=== PATIENT | female | born 1970 | race Caucasian/White ===

== ENCOUNTER 2018-03-02 11:04 | Emergency (ER) | payer SELFPAY ==
[~2018-03-02] VITALS: Ht 162.6 cm; Wt 47.0 kg
[~2018-03-02 11:04] MED LIST: DENIES CURRENT MEDS; FLEXERIL OR; ULTRAM50 MG OR
[2018-03-02 11:34] LABS: IMMATURE GRANULOCYTES 0.2 % (0.0-5.0); MEAN CELL VOLUME 92.8 fL CALC (80.0-100.0); MEAN CORPUSCULAR HGB 30.3 pG CALC (26.0-32.0); MEAN CORPUSCULAR HGB CONC 32.7 g/L CALC (32.0-36.0); NEUT# 2.11 thou/uL (2.00-7.15); RED BLOOD COUNT 5.57 mill/uL (4.20-5.60); RED CELL DISTRI WIDTH 12.8 % (11.5-15.5)
[2018-03-02 11:38] LABS: HEMATOCRIT 51.7 % (37.0-47.0); HEMOGLOBIN 16.9 g/dl (12.0-16.0)
[2018-03-02 11:58] LABS: ALBUMIN 3.6 g/dL (3.2-5.0); ALKALINE PHOSPHATASE 70 u/l (38-126); ANION GAP 13 (6-22 (CALC)); BILIRUBIN, TOTAL 0.3 mg/dL (0.0-1.4); BUN 17 mg/dL (7-17); BUN/CREATININE RATIO 18 (12-20 (CALC)); CARBON DIOXIDE 27 mmol/l (22-30); CHLORIDE 105 mmol/l (95-108); GFR 59 ML/MIN (>=60 (CALC)); GFR FOR AFR.AMER. > 60 ML/MIN (>=60 (CALC)); SGOT/AST 36 u/l (14-36); SODIUM 140 mmol/l (137-146); TOTAL PROTEIN 6.5 g/dL (6.3-8.2)
[2018-03-02 12:00] LABS: POTASSIUM 4.7 mmol/l (3.5-5.1)
[2018-03-02 13:02] LABS: INFLUENZA A POSITIVE (NONE DETECT); INFLUENZA B NONE DETECTED (NONE DETECT)
[2018-03-02] MEDS ORDERED: ZITHROMAX250 MG PO (13:21)
[2018-03-02] MEDS ORDERED: PROVENTIL HFA IN (13:21)
[2018-03-02] MEDS ORDERED: TAM75CAP PO (13:34)
[2018-03-02 13:40] VITALS: BP 119/58
== END 2018-03-02 13:40 | disposition home or self-care (01) | DRG 153 ==
LOC: ED 11:04
PROVIDERS: Emergency Medicine
DX: J11.1 Influenza due to unidentified influenza virus with other respiratory manifestations (principal); F17.200 Nicotine dependence, unspecified, uncomplicated

== ENCOUNTER 2018-11-28 10:44 | Observation (INO) | payer SELFPAY ==
[~2018-11-28] VITALS: Ht 162.6 cm; Wt 43.2 kg
[~2018-11-28 10:44] MED LIST changes: +PROVENTIL HFA IN; +TAM75CAP PO; +ZITHROMAX250 MG PO
--- NOTE | 2018-11-28 10:45 | NUR ---
PATIENT TO ED VIA EMS, UNCOOPERATIVE. 1 MG OF VERSED GIVEN BY EMS.
--- NOTE | 2018-11-28 10:52 | NUR ---
0.4 MG OF NARCAN IV GIVEN PER VERBAL ORDER.
--- NOTE | 2018-11-28 11:00 | NUR ---
[facility] PROVIDED FOR INCONTINENCE OF STOOL.
[2018-11-28 11:21] LABS: URINE BILIRUBIN - DIPSTICK NEGATIVE (NEGATIVE); URINE BLOOD DIPSTICK TRACE-INTACT (NEGATIVE); URINE COLOR YELLOW; URINE GLUCOSE - DIPSTICK NEGATIVE (NEGATIVE); URINE KETONE NEGATIVE (NEGATIVE); URINE LEUK ESTERASE NEGATIVE (NEGATIVE); URINE NITRITE - DIPSTICK POSITIVE (Negative); URINE PROTEIN - DIPSTICK TRACE mg/dL (NEG-TRACE); URINE SPECIFIC GRAVITY >=1.030; URINE UROBILINOGEN - DIPSTICK 0.2 E.U./dL (0.2)
[2018-11-28 11:22] LABS: URINE BACTERIA RARE hpf; URINE RBC 0-2 RBC/hpf (0-5); URINE WBC 0-2 WBC/hpf (0-5)
--- NOTE | 2018-11-28 11:23 | NUR ---
WAIVED HCG, FOR RADIOLOGY TO PERFORM ORDERED EXAMS
[2018-11-28 11:32] LABS: BARBITURATES NEGATIVE (NEGATIVE); COCAINE NEGATIVE (NEGATIVE); METHADONE NEGATIVE (NEGATIVE); TETRAHYDROCANNABIONOL NEGATIVE (NEGATIVE); TRICYLIC ANTIDEPRESSANTS NEGATIVE (NEGATIVE)
[2018-11-28 11:33] LABS: OXCYCODONE NEGATIVE (NEGATIVE)
[2018-11-28 11:36] LABS: IMMATURE GRANULOCYTES 0.5 % (0.0-5.0); MEAN CELL VOLUME 91.4 fL CALC (80.0-100.0); MEAN CORPUSCULAR HGB 29.9 pG CALC (26.0-32.0); MEAN CORPUSCULAR HGB CONC 32.7 g/L CALC (32.0-36.0); NEUT# 5.63 thou/uL (2.00-7.15); RED BLOOD COUNT 4.99 mill/uL (4.20-5.60); RED CELL DISTRI WIDTH 12.7 % (11.5-15.5)
[2018-11-28 11:40] LABS: HEMATOCRIT 45.6 % (37.0-47.0); HEMOGLOBIN 14.9 g/dl (12.0-16.0)
[2018-11-28 11:41] LABS: LIPASE 118 u/l (23-300)
[2018-11-28 11:42] LABS: ETHYL ALCOHOL 0 mg/dl (0-30)
[2018-11-28 11:44] LABS: ALBUMIN 3.8 g/dL (3.2-5.0); ALKALINE PHOSPHATASE 84 u/l (38-126); ANION GAP 12 (6-22 (CALC)); BILIRUBIN, TOTAL 0.5 mg/dL (0.0-1.4); BUN 13 mg/dL (7-17); BUN/CREATININE RATIO 16 (12-20 (CALC)); CARBON DIOXIDE 21 mmol/l (22-30); CHLORIDE 109 mmol/l (95-108); CREATININE 0.8 mg/dL (0.5-1.0); GFR > 60 ML/MIN (>=60 (CALC)); GFR FOR AFR.AMER. > 60 ML/MIN (>=60 (CALC)); SGOT/AST 39 u/l (14-36); SODIUM 138 mmol/l (137-146); TOTAL PROTEIN 6.7 g/dL (6.3-8.2)
--- NOTE | 2018-11-28 11:58 | NUR ---
IN TO REASSESS. Pt COMPLETLY ALERT. BOYFRIEND AT BEDSIDE
--- NOTE | 2018-11-28 12:14 | NUR ---
SON IN TO VISIT
--- NOTE | 2018-11-28 13:05 | NUR ---
MOM IN ROOM TO VISIT
--- NOTE | 2018-11-28 13:28 | NUR ---
ATTEMPT TO CALL REPORT TO MS. PRIMARY NURSE WILL CALL BACK.
--- NOTE | 2018-11-28 13:44 | NUR ---
DCSO Rowley AT BEDSIDE.
--- NOTE | 2018-11-28 14:35 | NUR ---
REPORT TO ROSE ALEXANDER
--- NOTE | 2018-11-28 14:42 | NUR ---
TO MS VIA W/C /c FRIEND TO FOLLOW. REPORT TO ROSE ALEXANDER
[2018-11-28 15:05] VITALS: BP 112/61
--- NOTE | 2018-11-28 17:00 | NUR ---
PT AWAKE RESTING IN BED. ALERT AND ORIENTED X4. RESP EVEN AND UNLABORED. PT OFFERS NO COMPLAINTS. VISITOR AT BEDSIDE. CALL KOO WITHIN REACH.
[2018-11-28 20:05] VITALS: BP 103/58
--- NOTE | 2018-11-28 20:55 | NUR ---
ASSESSMENT COMPLETED; NO DISTRESS NOTED. DENIES NEEDS/PAIN. NEURO CHECK WNL. REPORTS SLIGHT CRAMPS TO BLE AND GATRORADE PROVIDED. VOICES NO CONCERNS. S/O IN AT BEDSIDE. CALL LIGHT IS IN REACH. WILL CONTINUE TO MONITOR.
--- NOTE | 2018-11-28 22:41 | NUR ---
PT. RESTING IN BED WITH EYES CLOSED; NO DISTRESS NOTED; RESP. EVEN AND UNLABORED.
--- NOTE | 2018-11-29 00:06 | NUR ---
RESTING IN BED WITH EYES CLOSED; RESP. EVEN AND UNLABORED; CALL LIGHT IS IN REACH. S/O REMAINS AT BEDSIDE.
[2018-11-29 00:43] VITALS: BP 98/5; BP 98/52
[2018-11-29 03:45] VITALS: BP 101/60
--- NOTE | 2018-11-29 03:45 | NUR ---
PT. RESTING IN BED WITH EYES CLOSED; AROUSES EASILY; DENIES NEEDS/PAIN. VS OBTAINED AND WNL. ENCOURAGED TO CALL FOR ANY NEEDS. CALL LIGHT IS IN REACH. WILL CONTINUE TO MONITOR.
--- NOTE | 2018-11-29 05:20 | NUR ---
PT. RESTING IN BED.NO DISTRESS NOTED. DENIES NEEDS. CALL LIGHT IS IN REACH. WILL CONTINUE TO MONTIOR.
[2018-11-29 06:27] LABS: CHOLESTEROL HDL RATIO 2.1 (<4.4 (CALC))
--- NOTE | 2018-11-29 07:00 | NUR ---
REPORT RECEIVED FROM BENJAMIN JIANG;PT APPEARS TO BE SLEEPING IN SEMI FOWLERS POSITION WITH BLANKETS OVER HER HEAD;RESPIRATIONS APPEAR EVEN AND UNLABORED ON RA;NO S/S OF DISTRESS NOTED;TELE MONITORING IN PLACE;FALL PRECAUTIONS NOTED WITH BED IN THE LOWEST POSITION AND CALL LIGHT IN REACH;WILL CONTINUE TO MONITOR
--- NOTE | 2018-11-29 08:40 | NUR ---
PT RESTING IN SEMI FOWLERS POSITION WITH VISITOR AT BEDSIDE;VS OBTAINED AND ASSESSMENT COMPLETED;PT REPORTS TONGUE PAIN RATING 2/10 ON THE PAIN SCALE AND REQUESTS PRN PAIN MEDICATION, PT TO BE MEDICATED WITH PRN TYLENOL 650MG PO;RESPIRATIONS EVEN AND UNLABORED ON RA,CLEAR LUNG SOUNDS;ABDOMEN SOFT ON PALPATION AND ACTIVE IN ALL 4 QUADRANTS;STRONG PEDAL PULSES;SKIN INTACT;TELE MONITORING IN PLACE;#22G TO RIGHT FOREARM FLUSHED AND PATENT,SITE APPEARS HEALTHY;PT DENIES ANY ADDITIONAL NEEDS AT THIS TIME AND IS ENCOURAGED TO CALL FOR ASSISTANCE IF NEEDED;FALL PRECAUTIONS NOTED WITH BED IN THE LOWEST POSITION AND CALL LIGHT IN REACH;WILL CONTINUE TO MONITOR
[2018-11-29 08:42] VITALS: BP 97/42
[2018-11-29 11:15] VITALS: BP 93/60
--- NOTE | 2018-11-29 11:35 | NUR ---
PT RESTING IN SEMI FOWLERS POSITION WITH VISITOR AT BEDSIDE, ANXIOUS TO GO HOME;RESPIRATIONS EVEN AND UNLABORED ON RA;PT DENIES ANY CURRENT PAIN OR NEEDS;TELE MONITORING IN PLACE;IV SITE TO RFA PATENT;PT ENCOURAGED TO CALL FOR ASSISTANCE IF NEEDED;CALL LIGHT IN REACH;WILL CONTINUE TO MONITOR
--- NOTE | 2018-11-29 12:05 | NUR ---
AT BEDSIDE DISCUSSING POC WITH PT AND VISITOR INCLUDING PLAN TO D/C HOME AND F/O WITH NEUROLOGIST,PT VERBALIZES UNDERSTANDING OF POC.
[2018-11-29] MEDS ORDERED: KEFLEX500 MG PO (12:08)
--- NOTE | 2018-11-29 12:55 | NUR ---
ALL DISCHARGE INSTRUCTIONS PROVIDED AT THIS TIME. PT GIVEN RX FOR KEFLEX AND EDUCATED ON USE, PT VERBALIZES UNDERSTANDING; NOTE PROVIDED FOR WORK;IV SITE REMOVED WITH CATHETER INTACT;PT DENIES ANY ADDITIONAL NEEDS;WHEELCHAIR TO BE PROVIDED FOR [facility] HOME.AWAITING SIGNIFICANT OTHER FOR TRANSPORTATION HOME/
--- NOTE | 2018-11-29 14:25 | NUR ---
Discharge instructions given. Patient verbalizes understanding of same. Discharged in stable condition via Ambulatory to Home with spouse. All belongings sent with pt.
== END 2018-11-29 14:20 | disposition home or self-care (01) | DRG 312 ==
LOC: ED 10:44 → ED-I 12:09 → ED 12:20 → MS2 12:21
PROVIDERS: Family Medicine; ADMIT Internal Medicine; ATTEND Internal Medicine
DX: R55 Syncope and collapse (principal); N39.0 Urinary tract infection, site not specified; G93.40 Encephalopathy, unspecified; R07.9 Chest pain, unspecified; F17.200 Nicotine dependence, unspecified, uncomplicated; S01.512A Laceration without foreign body of oral cavity, initial encounter; B96.20 Unspecified Escherichia coli [E. coli] as the cause of diseases classified elsewhere; F15.10 Other stimulant abuse, uncomplicated; F14.90 Cocaine use, unspecified, uncomplicated; F19.90 Other psychoactive substance use, unspecified, uncomplicated; R32 Unspecified urinary incontinence; V48.0XXA Car driver injured in noncollision transport accident in nontraffic accident, initial encounter
CPT/HCPCS: G0378

== ENCOUNTER 2019-05-16 11:13 | Emergency (ER) | payer SELFPAY ==
[~2019-05-16 11:13] MED LIST changes: +KEFLEX500 MG PO
== END 2019-05-16 11:45 | disposition left against medical advice (07) | DRG 951 ==
LOC: ED 11:13
DX: Z91.19 Patient's noncompliance with other medical treatment and regimen (principal)

== ENCOUNTER 2020-05-09 11:26 | Emergency (ER) | payer BC ==
[~2020-05-09] VITALS: Ht 162.6 cm; Wt 47.0 kg
[2020-05-09 12:17] LABS: HEMATOCRIT 45.3 % (37.0-47.0); HEMOGLOBIN 14.1 g/dl (12.0-16.0); IMMATURE GRANULOCYTES 0.2 % (0.0-5.0); MEAN CELL VOLUME 95.2 fL CALC (80.0-100.0); MEAN CORPUSCULAR HGB 29.6 pG CALC (26.0-32.0); MEAN CORPUSCULAR HGB CONC 31.1 g/dL CAL (32.0-36.0); NEUT# 5.61 thou/uL (2.00-7.15); RED BLOOD COUNT 4.76 mill/uL (4.20-5.60); RED CELL DISTRI WIDTH 12.6 % (11.5-15.5)
[2020-05-09 12:18] LABS: URINE BILIRUBIN - DIPSTICK NEGATIVE (NEGATIVE); URINE BLOOD DIPSTICK LARGE (NEGATIVE); URINE GLUCOSE - DIPSTICK 100 mg/dL (NEGATIVE); URINE KETONE 15 mg/dL (NEGATIVE); URINE PH 6.5 (4.5-8.0); URINE PROTEIN - DIPSTICK >=300 mg/dL (NEG-TRACE)
[2020-05-09 12:24] LABS: URINE COLOR BLOODY; URINE LEUK ESTERASE MODERATE (NEGATIVE); URINE NITRITE - DIPSTICK POSITIVE (Negative)
[2020-05-09 12:26] LABS: ALBUMIN 3.4 g/dL (3.2-5.0); ALKALINE PHOSPHATASE 94 u/l (38-126); BUN 17 mg/dL (7-17); BUN/CREATININE RATIO 19 (12-20 (CALC)); CHLORIDE 110 mmol/l (95-108); CREATININE 0.9 mg/dL (0.5-1.0); GFR > 60 ML/MIN (>=60 (CALC)); GFR FOR AFR.AMER. > 60 ML/MIN (>=60 (CALC)); POTASSIUM 4.1 mmol/l (3.5-5.1); SGOT/AST 27 u/l (14-36); SODIUM 139 mmol/l (137-146); TOTAL PROTEIN 6.1 g/dL (6.3-8.2)
[2020-05-09 12:27] LABS: ANION GAP 5 (6-22 (CALC)); BILIRUBIN, TOTAL 0.2 mg/dL (0.0-1.4); CARBON DIOXIDE 28 mmol/l (22-30)
[2020-05-09 12:30] LABS: URINE RBC TNTC RBC/hpf (0-5); URINE WBC >100 WBC/hpf (0-5)
[2020-05-09] MEDS ORDERED: KEFLEX500 M1 PO (15:05)
[2020-05-09] MEDS ORDERED: PYRIDIUM200 MG PO (15:05)
[2020-05-09 15:24] VITALS: BP 115/71
== END 2020-05-09 15:40 | disposition home or self-care (01) | DRG 690 ==
LOC: ED 11:26
PROVIDERS: Emergency Medicine
DX: N39.0 Urinary tract infection, site not specified (principal); F17.210 Nicotine dependence, cigarettes, uncomplicated; Z85.42 Personal history of malignant neoplasm of other parts of uterus; Z87.442 Personal history of urinary calculi
CPT/HCPCS: Q9967

== ENCOUNTER 2021-05-21 23:51 | Emergency (ER) | payer BC ==
[~2021-05-21] VITALS: Ht 162.6 cm; Wt 50.0 kg
[~2021-05-21 23:51] MED LIST changes: +KEFLEX500 M1 PO; +PYRIDIUM200 MG PO
[2021-05-22 00:29] LABS: HEMATOCRIT 44.8 % (37.0-47.0); HEMOGLOBIN 14.2 g/dl (12.0-16.0); IMMATURE GRANULOCYTES 0.6 % (0.0-5.0); MEAN CELL VOLUME 95.9 fL CALC (80.0-100.0); MEAN CORPUSCULAR HGB 30.4 pG CALC (26.0-32.0); MEAN CORPUSCULAR HGB CONC 31.7 g/dL CAL (32.0-36.0); NEUT# 5.48 thou/uL (2.00-7.15); RED BLOOD COUNT 4.67 mill/uL (4.20-5.60); RED CELL DISTRI WIDTH 12.8 % (11.5-15.5)
[2021-05-22 00:54] LABS: ALBUMIN 3.9 g/dL (3.2-5.0); ALKALINE PHOSPHATASE 97 u/l (38-126); AMYLASE 95 u/l (30-110); ANION GAP 9 (6-22 (CALC)); BILIRUBIN, TOTAL 0.2 mg/dL (0.0-1.4); BUN 18 mg/dL (7-17); BUN/CREATININE RATIO 19 (12-20 (CALC)); CARBON DIOXIDE 30 mmol/l (22-30); CHLORIDE 102 mmol/l (95-108); GFR 58 ML/MIN (>=60 (CALC)); GFR FOR AFR.AMER. > 60 ML/MIN (>=60 (CALC)); LIPASE 111 u/l (23-300); POTASSIUM 3.7 mmol/l (3.5-5.1); SGOT/AST 29 u/l (14-36); SODIUM 138 mmol/l (137-146)
[2021-05-22 00:57] LABS: D-DIMER 0.26 mg/L (0.19-0.60)
[2021-05-22 01:09] LABS: ACT PARTIAL THROMBO TIME 23.9 SECONDS (20.0-32.5); INTERNATIONAL NORMALIZED RATIO 0.9 RATIO (0.7-1.3); PROTHROMBIN TIME 9.7 SECONDS (9.0-12.5)
[2021-05-22] MEDS ORDERED: VENTOLIN HFA IN (01:23)
[2021-05-22 01:32] VITALS: BP 125/73
== END 2021-05-22 01:44 | disposition home or self-care (01) | DRG 192 ==
LOC: ED 23:51
PROVIDERS: Family Medicine
DX: J44.1 Chronic obstructive pulmonary disease with (acute) exacerbation (principal); R07.89 Other chest pain; F41.9 Anxiety disorder, unspecified; F17.200 Nicotine dependence, unspecified, uncomplicated; Z20.822 Contact with and (suspected) exposure to COVID-19
CPT/HCPCS: J2060

== ENCOUNTER 2021-11-08 18:04 | Emergency (ER) | payer OTHER, BC ==
[~2021-11-08] VITALS: Ht 162.6 cm; Wt 53.0 kg
[~2021-11-08 18:04] MED LIST changes: +VENTOLIN HFA IN
[2021-11-08 18:18] VITALS: BP 128/78
== END 2021-11-08 19:42 | disposition home or self-care (01) | DRG 605 ==
LOC: ED 18:04
PROC: 0HQ1XZZ Repair Face Skin, External Approach (ICD-10-PCS; principal; 2021-11-08)
DX: S01.81XA Laceration without foreign body of other part of head, initial encounter (principal); F17.210 Nicotine dependence, cigarettes, uncomplicated; W22.09XA Striking against other stationary object, initial encounter; Y93.89 Activity, other specified; Y92.89 Other specified places as the place of occurrence of the external cause; Y99.0 Civilian activity done for income or pay

== ENCOUNTER 2022-10-31 16:20 | Emergency (ER) | payer BC ==
[~2022-10-31] VITALS: Ht 162.6 cm; Wt 47.0 kg
[2022-10-31] VITALS (10 sets, daily range): BP systolic 109–127; BP diastolic 65–74
[2022-10-31] MEDS ORDERED: PAXLOVID PO (18:08)
== END 2022-10-31 18:35 | disposition home or self-care (01) | DRG 179 ==
LOC: ED 16:20
DX: U07.1 COVID-19 (principal); R05.9 Cough, unspecified; R50.9 Fever, unspecified; R52 Pain, unspecified; R06.02 Shortness of breath; F17.200 Nicotine dependence, unspecified, uncomplicated; Z86.16 Personal history of COVID-19

== ENCOUNTER 2023-12-22 10:03 | Emergency (ER) | payer SELFPAY ==
[~2023-12-22] VITALS: Ht 162.6 cm; Wt 49.0 kg
[2023-12-22] VITALS (8 sets, daily range): BP systolic 132–143; BP diastolic 83–92
[~2023-12-22 10:03] MED LIST changes: +ALBUTERO2 IN; +NICOTINE T21 MG/242 TD; +PAXLOVID PO; +PREDNISONE10 MG PO; +SPIRIVA RE2.5 MCG/AC IN; +SYMBICORT1 AE1 IN
[2023-12-22] MEDS ORDERED: cefTRIAXone SODIUM 2 GM in SODIUM CHLORIDE 0.9% 100 ML IV ONE (10:20)
[2023-12-22] MEDS ORDERED: KETOROLAC TROMETHAMINE 15 MG/ML SDV IV ONE (10:20)
[2023-12-22 10:40] LABS: BASO% 0.5 % (0-3); EOS% 1.4 % (0-8); HEMATOCRIT 47.7 % (37.0-47.0); HEMOGLOBIN 15.7 g/dl (12.0-16.0); IMMATURE GRANULOCYTES 0.2 % (0.0-5.0); LYMPH% 8.8 % (15-41); MEAN CELL VOLUME 93.3 fL CALC (80.0-100.0); MEAN CORPUSCULAR HGB 30.7 pG CALC (26.0-32.0); MEAN CORPUSCULAR HGB CONC 32.9 g/dL CAL (32.0-36.0); MONO% 8.6 % (2-13); NEUT# 10.48 thou/uL (2.00-7.15); NEUT% 80.5 % (42-76); RED BLOOD COUNT 5.11 mill/uL (4.20-5.60); RED CELL DISTRI WIDTH 12.8 % (11.5-15.5)
[2023-12-22 10:58] LABS: ALBUMIN 3.7 g/dL (3.2-5.0); POTASSIUM 4.7 mmol/l (3.5-5.1); TOTAL PROTEIN 6.4 g/dL (6.3-8.2)
[2023-12-22 11:03] LABS: BILIRUBIN, TOTAL 0.3 mg/dL (0.02-1.3); CREATININE 0.9 mg/dL (0.5-1.0)
== END 2023-12-22 14:05 | disposition home or self-care (01) | DRG 159 ==
LOC: ED 10:03
PROVIDERS: Family Medicine
DX: K04.7 Periapical abscess without sinus (principal); F17.200 Nicotine dependence, unspecified, uncomplicated
CPT/HCPCS: Q9967

== ENCOUNTER 2024-05-14 20:32 | Emergency (ER) | payer SELFPAY ==
[2024-05-14] VITALS (10 sets, daily range): BP systolic 125–149; BP diastolic 80–91
[~2024-05-14] VITALS: Ht 162.6 cm; Wt 65.0 kg
[2024-05-14] MEDS ORDERED: NITROGLYCERIN 2% OINT UD 1 GM/PAK TD ONE (20:45)
[2024-05-14] MEDS ORDERED: METOPROLOL TARTRATE 5 MG/5 ML VIAL IV ONE (20:45)
[2024-05-14] MEDS ORDERED: ALUM & MAG HYDROX-SIMETHICONE 30 ML PO ONE (21:20)
[2024-05-14] MEDS ORDERED: LIDOCAINE VISCOUS 2% 15 ML UDC PO ONE (21:20)
[2024-05-14 21:25] LABS: BASO% 0.6 % (0-3); EOS% 2.4 % (0-8); HEMATOCRIT 45.9 % (37.0-47.0); HEMOGLOBIN 14.7 g/dl (12.0-16.0); IMMATURE GRANULOCYTES 0.5 % (0.0-5.0); LYMPH% 29.6 % (15-41); MEAN CELL VOLUME 94.1 fL CALC (80.0-100.0); MEAN CORPUSCULAR HGB 30.1 pG CALC (26.0-32.0); MONO% 7.3 % (2-13); NEUT# 8.04 thou/uL (2.00-7.15); NEUT% 59.6 % (42-76); RED BLOOD COUNT 4.88 mill/uL (4.20-5.60); RED CELL DISTRI WIDTH 12.9 % (11.5-15.5)
[2024-05-14 21:37] LABS: ALBUMIN 4.2 g/dL (3.2-5.0); ALKALINE PHOSPHATASE 108 u/l (38-126); ANION GAP 10 (6-22 (CALC)); BILIRUBIN, TOTAL 0.3 mg/dL (0.02-1.3); BUN 14 mg/dL (7-17); BUN/CREATININE RATIO 16 (12-20 (CALC)); CARBON DIOXIDE 29 mmol/l (22-30); CHLORIDE 104 mmol/l (95-108); CREATININE 0.8 mg/dL (0.5-1.0); ESTIMATED GFR 88 ML/MIN (>=90 (CALC)); LIPASE 94 u/l (23-300); POTASSIUM 4.1 mmol/l (3.5-5.1); SODIUM 139 mmol/l (137-146); TOTAL PROTEIN 7.2 g/dL (6.3-8.2)
[2024-05-14 21:45] LABS: SGOT/AST 34 u/l (14-36)
[2024-05-14 21:46] LABS: ACT PARTIAL THROMBO TIME 25.8 SECONDS (20.0-32.5); D-DIMER 0.41 mg/L (0.19-0.60); PROTHROMBIN TIME 10.3 SECONDS (9.0-12.5)
== END 2024-05-14 23:28 | disposition home or self-care (01) | DRG 313 ==
LOC: ED 20:32
PROVIDERS: Family Medicine
DX: R07.9 Chest pain, unspecified (principal); F17.210 Nicotine dependence, cigarettes, uncomplicated; Z20.822 Contact with and (suspected) exposure to COVID-19
CPT/HCPCS: Q9967